=== PATIENT | female | born 1935 | race Caucasian/White ===

== ENCOUNTER 2020-11-17 23:00 | Emergency (ER) | payer MEDICARE | END 2020-11-18 00:07 | disposition home or self-care (01) | LOC: ERS 23:00 | DX: R09.89 Other specified symptoms and signs involving the circulatory and respiratory systems (principal); E11.9 Type 2 diabetes mellitus without complications; E03.9 Hypothyroidism, unspecified; E78.5 Hyperlipidemia, unspecified | CPT/HCPCS: 99283 ==

== ENCOUNTER 2022-08-27 10:20 | Inpatient (IN) | payer OTHER, MEDICARE ==
[2022-08-27] MEDS ORDERED: Fentanyl 100 MCG/2 ML VIAL ONE ×4 (11:02→18:03)
[2022-08-27] MEDS ORDERED: Boostrix 0.5 ML (Tdap) VIAL (>/=7 yrs of age) ONE ×2 (11:33→12:43)
[2022-08-27] MEDS ORDERED: Clindamycin/D5W 900 mg/50 ml Premix Bag ONE ×2 (11:33→12:43)
[2022-08-27 11:47] LABS: #Eosinphils 0.1 thou/uL (0.0-0.7); #Lymphocytes 1.1 thou/uL (1.20-3.40); #Monocytes 0.4 thou/uL (0.11-0.59); #Neutrophils 4.5 thou/uL (1.40-6.50); %Basophils 0.6 % (0.0-1.0); %Eosinophils 1.8 % (0.0-10.0); %Lymphocytes 17.5 % (21.0-51.0); %Monocytes 6.9 % (0.0-10.0); %Neutrophils 73.2 % (42.0-75.0); Hemoglobin 12.4 g/dL (12.0-16.0); Mean Corpuscular HGB CONC 33.1 g/dL (32.0-36.0); Mean Corpuscular Hemoglobin 32.8 pg (27.0-31.0); Platelet Count 216 10x3/uL (130-400); RBC Distribution Width 14.3 % (11.5-14.5); Red Blood Cell (RBC) Count 3.77 mill/uL (4.20-5.40); White Blood Cell (WBC) Count 6.1 10x3/uL (4.8-10.8)
[2022-08-27 12:04] LABS: PTT 27.5 sec (22.9-36.1); Prothrombin Time 13.6 sec (12.0-14.7)
[2022-08-27 12:09] LABS: ALT (SGPT) 19 U/L (8-55); AST (SGOT) 23 U/L (5-34); Albumin 4.1 g/dL (3.4-4.8); Alkaline Phosphatase 42 U/L (40-110); Anion Gap 11 mmol/L (10-20); BUN (Urea Nitrogen) 8 mg/dL (9.8-20.1); Bilirubin, Total 1.1 mg/dL (0.2-1.2); Calc. Creatinine Clearance 0 mL/min (70-130); Calcium 8.7 mg/dL (7.8-10.44); Carbon Dioxide 26 mmol/L (23-31); Chloride 109 mmol/L (98-107); Estimated GFR 89; Globulin 2.4 g/dL (2.4-3.5); Glucose 107 mg/dL (83-110); Potassium 3.3 mmol/L (3.5-5.1); Protein, Total 6.5 g/dL (5.8-8.1); Sodium 143 mmol/L (136-145)
[2022-08-27] MEDS ORDERED: Morphine 2 MG/ML VIAL SLOW IVP PRN (13:13)
[2022-08-27] MEDS ORDERED: Dextrose 5% in Water 1,000 ML IV PRN (13:13)
[2022-08-27] MEDS ORDERED: TETANUS, DIPHTHERIA TOX,ADULT (TDVAX) 0.5 ML VIAL IM ONE (13:13)
[2022-08-27] MEDS ORDERED: Ipratropium/Albuterol 3 ML NEB NEB PRN ×2 (13:13→13:15)
[2022-08-27] MEDS ORDERED: Dextrose 50% Abboject 50 ML SYRINGE SLOW IVP PRN (13:13)
[2022-08-27] MEDS ORDERED: Ondansetron PF 4 MG/2 ML Vial IVP PRN (13:13)
[2022-08-27] MEDS ORDERED: Midazolam HCl 2 mg/2 ml Vial ONE (13:15)
[2022-08-27] MEDS ORDERED: Bupivacaine 0.25% 10 ML VIAL ONE ×2 (13:15)
[2022-08-27] MEDS ORDERED: Acetaminophen 500 MG TAB PO SCH (13:30)
[2022-08-27] MEDS ORDERED: Naloxone HCl 2 mg/2 ml Syringe ONE (13:38)
[2022-08-27] MEDS ORDERED: fentaNYL PF 100 MCG/2 ML SYRINGE ONE (15:12)
[2022-08-27 15:31] LABS: Bacteria/HPF None Seen HPF (None Seen); Bilirubin Negative (Negative); Blood, Urine 1+ (Negative); Clarity Clear (Clear); Glucose, Urine (Dipstick) Normal (Negative); Ketone, Urine Negative (Negative); Leukocyte Negative Leu/uL (Negative); Nitrite Negative (Negative); Protein, Urine (Dipstick) Negative (Neg-Trace); RBC/HPF None Seen HPF (0-3); Specific Gravity, Urine 1.009 (1.002-1.036); Squamous Epithelial 0-3 HPF (0-3); Urobilinogen Normal mg/dL (Less than 2); WBC/HPF 0-3 HPF (0-3); pH, Urine 7.5 (5.0-9.0)
[2022-08-27] MEDS ORDERED: Sodium Chloride 0.9% 100 ML ONE (15:55)
[2022-08-27] MEDS ORDERED: CEFAZOLIN 2 GM VIAL ONE (15:55)
[2022-08-27] MEDS ORDERED: Succinylcholine Chloride 100 MG/5 ML SYRINGE FS ONE (16:00)
[2022-08-27] MEDS ORDERED: Ondansetron PF 4 MG/2 ML Vial ONE (16:00)
[2022-08-27] MEDS ORDERED: Dexamethasone 20 MG/5 ML VIAL ONE (16:00)
[2022-08-27] MEDS ORDERED: Lidocaine 1% PF 5 ML VIAL ONE (16:00)
[2022-08-27] MEDS ORDERED: PROPOFOL 200 MG/20 ML VIAL ONE (16:00)
[2022-08-27] MEDS ORDERED: PHENYLEPHRINE-NS 100 MCG/ML 10 ML SYRINGE ONE (16:00)
[2022-08-27 16:02] LABS: SARS-CoV-2 NAA Rapid Test DETECTED (NotDetected)
[2022-08-27] MEDS ORDERED: Bupivacaine 0.25% HCL 30 ML VIAL ONE (16:55)
[2022-08-27] MEDS ORDERED: Promethazine HCl 25 MG/ML VIAL IM PRN (17:13)
[2022-08-27] MEDS ORDERED: Ondansetron HCl/PF 4 MG/2 ML Vial IVP PRN (17:13)
[2022-08-27] MEDS ORDERED: Labetalol HCl 100 MG/20 ML VIAL ONE (17:34)
[2022-08-27] MEDS: Sodium Chloride 0.9% 1,000 ML IV SCH ×2 (19:35→20:54)
[2022-08-27] MEDS: CEFAZOLIN 2 GM in Sodium Chloride 0.9% 100 ML IVPB SCH ×3 (19:35→22:14)
[2022-08-27] MEDS: traMADol HCl 50 MG TAB PO SCH ×2 (19:35→22:06)
[2022-08-27] MEDS: Senokot S 8.6-50 MG TAB PO SCH (20:37)
[2022-08-27] MEDS: Famotidine/PF 20 mg/2ml Vial SLOW IVP SCH (20:38)
[2022-08-27] MEDS: Cyclobenzaprine 10 MG TAB PO PRN (20:38)
[2022-08-27] MEDS: traMADol HCl 50 MG TAB PO PRN (20:40)
[2022-08-27] MEDS: Acetaminophen 500 MG TAB PO SCH (20:54)
[2022-08-28] MEDS: Acetaminophen 500 MG TAB PO SCH ×4 (00:09→18:01)
[2022-08-28 03:27] VITALS: BMI 24.9
[2022-08-28] MEDS: traMADol HCl 50 MG TAB PO PRN ×3 (03:28→18:02)
[2022-08-28] MEDS: CEFAZOLIN 2 GM in Sodium Chloride 0.9% 100 ML IVPB SCH ×5 (06:07→20:52)
[2022-08-28] MEDS: traMADol HCl 50 MG TAB PO SCH ×2 (06:08→16:05)
[2022-08-28 07:00] LABS: #Lymphocytes 0.8 thou/uL (1.20-3.40); #Monocytes 0.7 thou/uL (0.11-0.59); #Neutrophils 4.9 thou/uL (1.40-6.50); %Basophils 0.2 % (0.0-1.0); %Eosinophils 0.1 % (0.0-10.0); %Monocytes 11.1 % (0.0-10.0); %Neutrophils 75.6 % (42.0-75.0); Mean Corpuscular HGB CONC 33.7 g/dL (32.0-36.0); Mean Corpuscular Hemoglobin 32.8 pg (27.0-31.0); Mean Corpuscular Volume 97.4 fl (78.0-98.0); Mean Platelet Volume 8.1 fL (7.4-10.4); Platelet Count 158 10x3/uL (130-400); Red Blood Cell (RBC) Count 3.05 mill/uL (4.20-5.40); White Blood Cell (WBC) Count 6.4 10x3/uL (4.8-10.8)
[2022-08-28] MEDS ORDERED: Alendronate Sodium 70 mg Tablet PO SCH (08:00)
[2022-08-28] MEDS: Famotidine/PF 20 mg/2ml Vial SLOW IVP SCH ×2 (08:51→20:52)
[2022-08-28] MEDS: Folic Acid 1 MG TAB PO SCH (08:52)
[2022-08-28] MEDS: Multivitamin W/ Minerals 1 TAB PO SCH (08:52)
[2022-08-28] MEDS: Polyethylene Glycol 3350 17 GM Packet PO SCH (08:52)
[2022-08-28] MEDS: Aspirin 81 mg Enteric Coated Tablet PO SCH (08:52)
[2022-08-28] MEDS: Senokot S 8.6-50 MG TAB PO SCH ×2 (08:52→20:53)
[2022-08-28] MEDS: Hydroxychloroquine Sulfate 200 MG TAB PO SCH (10:33)
[2022-08-28] MEDS: Gabapentin 300 MG CAP PO SCH ×3 (16:05→20:53)
[2022-08-28] MEDS ORDERED: Morphine 2 MG/ML VIAL SLOW IVP PRN (18:26)
[2022-08-28] MEDS: Cyclobenzaprine 10 MG TAB PO PRN (18:29)
[2022-08-28] MEDS ORDERED: Acetaminophen/Codeine 30-300mg Tablet PO SCH (18:30)
[2022-08-28] MEDS: Atorvastatin Calcium 10 MG TAB PO SCH (20:54)
[2022-08-29] MEDS: Acetaminophen/Codeine 30-300mg Tablet PO SCH ×2 (00:11→06:40)
[2022-08-29] MEDS: CEFAZOLIN 2 GM in Sodium Chloride 0.9% 100 ML IVPB SCH (06:39)
[2022-08-29] MEDS: Levothyroxine Sodium 88 MCG TAB PO SCH (06:40)
[2022-08-29] MEDS: Famotidine/PF 20 mg/2ml Vial SLOW IVP SCH ×2 (08:48→19:56)
[2022-08-29] MEDS: Acetaminophen 325 MG TAB PO SCH ×3 (08:49→19:55)
[2022-08-29] MEDS: Aspirin 81 mg Enteric Coated Tablet PO SCH (08:50)
[2022-08-29] MEDS: Senokot S 8.6-50 MG TAB PO SCH ×2 (08:50→19:55)
[2022-08-29] MEDS: Folic Acid 1 MG TAB PO SCH (08:50)
[2022-08-29] MEDS: Multivitamin W/ Minerals 1 TAB PO SCH (08:50)
[2022-08-29] MEDS: Hydroxychloroquine Sulfate 200 MG TAB PO SCH (09:13)
[2022-08-29] MEDS: Polyethylene Glycol 3350 17 GM Packet PO SCH (09:13)
[2022-08-29] MEDS: Gabapentin 300 MG CAP PO SCH (19:54)
[2022-08-29] MEDS: Atorvastatin Calcium 10 MG TAB PO SCH (19:54)
[2022-08-30] MEDS: Acetaminophen 325 MG TAB PO SCH ×3 (01:08→14:16)
[2022-08-30] MEDS: Levothyroxine Sodium 88 MCG TAB PO SCH (06:06)
[2022-08-30] MEDS ORDERED: Methotrexate Sodium 2.5 MG TAB PO SCH ×2 (09:00→21:00)
[2022-08-30] MEDS: Folic Acid 1 MG TAB PO SCH (09:35)
[2022-08-30] MEDS: Multivitamin W/ Minerals 1 TAB PO SCH (09:36)
[2022-08-30] MEDS: Aspirin 81 mg Enteric Coated Tablet PO SCH (09:36)
[2022-08-30] MEDS: Polyethylene Glycol 3350 17 GM Packet PO SCH (09:38)
[2022-08-30] MEDS: Senokot S 8.6-50 MG TAB PO SCH (09:38)
[2022-08-30] MEDS: Hydroxychloroquine Sulfate 200 MG TAB PO SCH (09:55)
[2022-08-30] MEDS ORDERED: Acetaminophen/Codeine 30-300mg Tablet PO PRN (10:03)
[2022-08-30] MEDS: Famotidine/PF 20 mg/2ml Vial SLOW IVP SCH (12:29)
[2022-08-30 15:28] VITALS: TEMP 98.2
[2022-08-30 15:29] VITALS: BP 120/81
[2022-08-30] MEDS: Gabapentin 300 MG CAP PO SCH (17:38)
[2022-08-30] MEDS ORDERED: Famotidine 20 MG TAB PO SCH (21:00)
[2022-08-31] MEDS ORDERED: FLU VACC QS2022-23(65YR UP)/PF 240 MCG/0.7 ML SYRINGE IM ONE (09:00)
== END 2022-08-30 19:30 | disposition swing bed (61) | DRG 510 ==
LOC: ERS 10:20 → SDC/OP 15:48 → SJJU 17:15
PROVIDERS: ADMIT Surgery; ATTEND Surgery
PROC: 0PSJ04Z Reposition Left Radius with Internal Fixation Device, Open Approach (ICD-10-PCS; principal; 2022-08-27)
DX: S52.572A Other intraarticular fracture of lower end of left radius, initial encounter for closed fracture (principal); U07.1 COVID-19; E11.40 Type 2 diabetes mellitus with diabetic neuropathy, unspecified; G89.29 Other chronic pain; M06.9 Rheumatoid arthritis, unspecified; M19.90 Unspecified osteoarthritis, unspecified site; E89.0 Postprocedural hypothyroidism; W01.0XXA Fall on same level from slipping, tripping and stumbling without subsequent striking against object, initial encounter; Z79.899 Other long term (current) drug therapy; Z79.890 Hormone replacement therapy; Z79.84 Long term (current) use of oral hypoglycemic drugs; Z88.8 Allergy status to other drugs, medicaments and biological substances; Z91.09 Other allergy status, other than to drugs and biological substances; Z90.49 Acquired absence of other specified parts of digestive tract; Z98.51 Tubal ligation status; Z87.442 Personal history of urinary calculi; Z98.890 Other specified postprocedural states
CPT/HCPCS: 36415; 36416; 70450; 71045; 72125; 80053; 81003; 81015; 84484; 85025; 85610; 85730; 86850; 86900; 86901; 90471; 90715; 93005; 96365; 99156; C1713; G0390; J1100; J2250; J2310; J2405; J2704; J3010; J3490; J7050; J8610; S0020; S0028; U0002

== ENCOUNTER 2022-08-31 20:34 | Inpatient (IN) | payer MEDICARE ==
[2022-09-01] MEDS ORDERED: Senokot S 8.6-50 MG TAB PO PRN (01:30)
[2022-09-01] MEDS ORDERED: Ondansetron ODT 4 MG TAB PO PRN (01:30)
[2022-09-01] MEDS: Acetaminophen/Codeine 30-300mg Tablet PO PRN (02:04)
[2022-09-01 03:21] VITALS: BMI 27.4
[2022-09-01 04:50] LABS: #Eosinphils 0.1 thou/uL (0.0-0.7); #Lymphocytes 1.4 thou/uL (1.20-3.40); #Monocytes 0.3 thou/uL (0.11-0.59); #Neutrophils 5.6 thou/uL (1.40-6.50); %Basophils 0.3 % (0.0-1.0); %Eosinophils 1.9 % (0.0-10.0); %Lymphocytes 18.6 % (21.0-51.0); %Monocytes 4.6 % (0.0-10.0); %Neutrophils 74.7 % (42.0-75.0); Hemoglobin 10.9 g/dL (12.0-16.0); Mean Corpuscular HGB CONC 33.5 g/dL (32.0-36.0); Mean Corpuscular Hemoglobin 32.6 pg (27.0-31.0); Mean Corpuscular Volume 97.3 fl (78.0-98.0); Mean Platelet Volume 8.2 fL (7.4-10.4); Platelet Count 241 10x3/uL (130-400); RBC Distribution Width 14.6 % (11.5-14.5); Red Blood Cell (RBC) Count 3.33 mill/uL (4.20-5.40); White Blood Cell (WBC) Count 7.5 10x3/uL (4.8-10.8)
[2022-09-01 05:18] LABS: Anion Gap 14 mmol/L (10-20); BUN (Urea Nitrogen) 11 mg/dL (9.8-20.1); Calc. Creatinine Clearance 86 mL/min (70-130); Calcium 8.8 mg/dL (7.8-10.44); Carbon Dioxide 21 mmol/L (23-31); Chloride 110 mmol/L (98-107); Estimated GFR 90; Glucose 137 mg/dL (83-110); Potassium 3.2 mmol/L (3.5-5.1); Sodium 142 mmol/L (136-145)
[2022-09-01 05:25] LABS: Troponin I Less than 0.010 ng/mL (< 0.028)
[2022-09-01] MEDS: Levothyroxine Sodium 88 MCG TAB PO SCH (05:43)
[2022-09-01] MEDS: Famotidine 20 MG TAB PO SCH ×2 (09:17→20:45)
[2022-09-01] MEDS: Aspirin 81 mg Enteric Coated Tablet PO SCH (09:17)
[2022-09-01] MEDS: CO Q-10 CAPSULE 100 MG PO SCH (09:17)
[2022-09-01] MEDS: Cholecalciferol 1,000 UNITS (25 MCG) TAB PO SCH (09:17)
[2022-09-01] MEDS: Folic Acid 1 MG TAB PO SCH (09:18)
[2022-09-01] MEDS ORDERED: Bisacodyl 10 MG SUPP PR PRN (09:33)
[2022-09-01] MEDS: Hydroxychloroquine Sulfate 200 MG TAB PO SCH (10:18)
[2022-09-01] MEDS: Multivitamin w/Zinc Stress 1 TAB PO SCH (10:19)
[2022-09-01] MEDS: Vitamin E 400 UNITS CAP PO SCH (10:19)
[2022-09-01 10:55] LABS: Troponin I Less than 0.010 ng/mL (< 0.028)
[2022-09-01] MEDS ORDERED: Potassium Chloride 20 MEQ TAB PO SCH (13:30)
[2022-09-01] MEDS: Atorvastatin Calcium 10 MG TAB PO SCH (17:55)
[2022-09-01] MEDS: Gabapentin 300 MG CAP PO SCH (17:55)
[2022-09-01] MEDS: Acetaminophen 325 MG TAB PO PRN (18:16)
[2022-09-01] MEDS ORDERED: Gabapentin 300 MG CAP PO SCH (21:00)
[2022-09-01] MEDS ORDERED: metFORMIN XR 500 MG TAB PO SCH (21:00)
[2022-09-02] MEDS: Acetaminophen 325 MG TAB PO PRN
[2022-09-02 04:04] LABS: #Eosinphils 0.2 thou/uL (0.0-0.7); #Lymphocytes 1.2 thou/uL (1.20-3.40); #Monocytes 0.6 thou/uL (0.11-0.59); #Neutrophils 5.8 thou/uL (1.40-6.50); %Basophils 0.5 % (0.0-1.0); %Eosinophils 2.4 % (0.0-10.0); %Lymphocytes 15.3 % (21.0-51.0); %Monocytes 7.6 % (0.0-10.0); %Neutrophils 74.3 % (42.0-75.0); Hemoglobin 10.8 g/dL (12.0-16.0); Mean Corpuscular HGB CONC 33.6 g/dL (32.0-36.0); Mean Corpuscular Hemoglobin 32.6 pg (27.0-31.0); Mean Corpuscular Volume 96.9 fl (78.0-98.0); Mean Platelet Volume 7.9 fL (7.4-10.4); Platelet Count 262 10x3/uL (130-400); RBC Distribution Width 14.4 % (11.5-14.5); Red Blood Cell (RBC) Count 3.31 mill/uL (4.20-5.40); White Blood Cell (WBC) Count 7.9 10x3/uL (4.8-10.8)
[2022-09-02 04:28] LABS: Anion Gap 13 mmol/L (10-20); BUN (Urea Nitrogen) 12 mg/dL (9.8-20.1); Calc. Creatinine Clearance 86 mL/min (70-130); Calcium 8.4 mg/dL (7.8-10.44); Carbon Dioxide 22 mmol/L (23-31); Chloride 108 mmol/L (98-107); Estimated GFR 90; Glucose 139 mg/dL (83-110); Magnesium 1.7 mg/dL (1.6-2.6); Potassium 3.8 mmol/L (3.5-5.1); Sodium 139 mmol/L (136-145)
[2022-09-02] MEDS: Levothyroxine Sodium 88 MCG TAB PO SCH (05:36)
[2022-09-02] MEDS: Aspirin 81 mg Enteric Coated Tablet PO SCH (10:45)
[2022-09-02] MEDS: Folic Acid 1 MG TAB PO SCH (10:45)
[2022-09-02] MEDS: CO Q-10 CAPSULE 100 MG PO SCH (10:45)
[2022-09-02] MEDS: Cholecalciferol 1,000 UNITS (25 MCG) TAB PO SCH (10:46)
[2022-09-02] MEDS: Famotidine 20 MG TAB PO SCH (10:46)
[2022-09-02] MEDS: Multivitamin w/Zinc Stress 1 TAB PO SCH (10:51)
[2022-09-02] MEDS: Vitamin E 400 UNITS CAP PO SCH (10:51)
[2022-09-02] MEDS: Hydroxychloroquine Sulfate 200 MG TAB PO SCH (10:51)
[2022-09-02] MEDS: Acetaminophen/Codeine 30-300mg Tablet PO PRN (12:17)
[2022-09-02 13:14] VITALS: TEMP 97.8
[2022-09-02] MEDS: Gabapentin 300 MG CAP PO SCH (17:52)
[2022-09-02 17:53] VITALS: BP 109/54
[2022-09-02] MEDS: Atorvastatin Calcium 10 MG TAB PO SCH (17:53)
[2022-09-06] MEDS ORDERED: Methotrexate Sodium 2.5 MG TAB PO SCH (09:00)
== END 2022-09-02 19:05 | DRG 310 ==
LOC: 2NO 09-01 01:03 → OBSVTOIN 09-02 09:34
PROVIDERS: ADMIT Student in an Organized Health Care Education/Training Program; ATTEND Family Medicine
DX: I48.92 Unspecified atrial flutter (principal); E03.9 Hypothyroidism, unspecified; M06.9 Rheumatoid arthritis, unspecified; Z79.84 Long term (current) use of oral hypoglycemic drugs; Z79.899 Other long term (current) drug therapy; S52.92XD Unspecified fracture of left forearm, subsequent encounter for closed fracture with routine healing; Z88.8 Allergy status to other drugs, medicaments and biological substances
CPT/HCPCS: 36415; 80048; 83735; 84484; 85025; 93306; 96372; G0378; J1650

== ENCOUNTER 2022-11-03 14:37 | Observation (INO) | payer MEDICARE ==
[2022-11-03 16:53] VITALS: BMI 23.7
[2022-11-03] MEDS ORDERED: Acetaminophen 325 MG TAB PO PRN ×2 (18:05→18:11)
[2022-11-03] MEDS ORDERED: Ondansetron ODT 4 MG TAB PO PRN (18:05)
[2022-11-03] MEDS ORDERED: Calcium Carbonate 500 MG ChewTAB PO PRN (18:05)
[2022-11-03] MEDS ORDERED: Senokot S 8.6-50 MG TAB PO PRN (18:05)
[2022-11-03] MEDS ORDERED: Bisacodyl 5 MG TAB PO PRN (18:11)
[2022-11-03] MEDS ORDERED: Alendronate Sodium 70 mg Tablet PO SCH (18:15)
[2022-11-03 18:46] LABS: #Eosinphils 0.1 thou/uL (0.0-0.7); #Monocytes 0.6 thou/uL (0.11-0.59); #Neutrophils 2.9 thou/uL (1.40-6.50); %Basophils 0.6 % (0.0-1.0); %Eosinophils 2.3 % (0.0-10.0); %Lymphocytes 30.9 % (21.0-51.0); %Monocytes 12.1 % (0.0-10.0); %Neutrophils 53.9 % (42.0-75.0); Hemoglobin 12.4 g/dL (12.0-16.0); Mean Corpuscular HGB CONC 31.1 g/dL (32.0-36.0); Mean Corpuscular Hemoglobin 30.5 pg (27.0-31.0); Platelet Count 242 10x3/uL (130-400); RBC Distribution Width 14.6 % (11.5-14.5); Red Blood Cell (RBC) Count 4.07 mill/uL (4.20-5.40); White Blood Cell (WBC) Count 5.3 10x3/uL (4.8-10.8)
[2022-11-03 18:58] LABS: Anion Gap 12 mmol/L (10-20); BUN (Urea Nitrogen) 7 mg/dL (9.8-20.1); Calc. Creatinine Clearance 77 mL/min (70-130); Calcium 8.7 mg/dL (7.8-10.44); Carbon Dioxide 23 mmol/L (23-31); Chloride 111 mmol/L (98-107); Estimated GFR 89; Glucose 94 mg/dL (83-110); Potassium 3.4 mmol/L (3.5-5.1); Sodium 143 mmol/L (136-145)
[2022-11-03] MEDS ORDERED: Electrolyte Replacement Protocol 1 EACH FS SCH (19:52)
[2022-11-03] MEDS ORDERED: Gabapentin 300 MG CAP PO SCH ×4 (21:00→23:30)
[2022-11-03] MEDS ORDERED: Atorvastatin Calcium 40 MG TAB PO SCH (21:00)
[2022-11-03] MEDS ORDERED: metFORMIN XR 500 MG TAB PO SCH (21:00)
[2022-11-03] MEDS: Famotidine 20 MG TAB PO SCH (22:05)
[2022-11-03] MEDS ORDERED: Acetaminophen 500 MG TAB PO PRN (22:19)
[2022-11-04 04:57] LABS: #Eosinphils 0.1 thou/uL (0.0-0.7); #Monocytes 0.6 thou/uL (0.11-0.59); #Neutrophils 2.5 thou/uL (1.40-6.50); %Basophils 0.6 % (0.0-1.0); %Eosinophils 2.9 % (0.0-10.0); %Lymphocytes 31.7 % (21.0-51.0); %Monocytes 11.6 % (0.0-10.0); %Neutrophils 52.8 % (42.0-75.0); Hemoglobin 12.2 g/dL (12.0-16.0); Mean Corpuscular HGB CONC 31.4 g/dL (32.0-36.0); Mean Corpuscular Volume 98.7 fl (78.0-98.0); Mean Platelet Volume 9.9 fL (7.4-10.4); Platelet Count 238 10x3/uL (130-400); RBC Distribution Width 14.7 % (11.5-14.5); Red Blood Cell (RBC) Count 3.94 mill/uL (4.20-5.40); White Blood Cell (WBC) Count 4.8 10x3/uL (4.8-10.8)
[2022-11-04 05:20] LABS: Anion Gap 9 mmol/L (10-20); BUN (Urea Nitrogen) 11 mg/dL (9.8-20.1); Calc. Creatinine Clearance 73 mL/min (70-130); Calcium 8.6 mg/dL (7.8-10.44); Carbon Dioxide 24 mmol/L (23-31); Cardiac Risk 2.6 (Less than 4.5); Chloride 111 mmol/L (98-107); Cholesterol 138 mg/dl (< 200 Desired); Estimated GFR 88; Glucose 103 mg/dL (83-110); HDL Cholesterol 54 mg/dL (>60 Neg Risk); LDL Cholesterol, Calculated 60 mg/dL; Potassium 3.4 mmol/L (3.5-5.1); Sodium 141 mmol/L (136-145); Triglycerides 122 mg/dL (Less than 150)
[2022-11-04] MEDS ORDERED: Levothyroxine Sodium 88 MCG TAB PO SCH (06:00)
[2022-11-04] MEDS ORDERED: Potassium Chloride 20 MEQ TAB PO SCH (08:00)
[2022-11-04] MEDS: Famotidine 20 MG TAB PO SCH (08:57)
[2022-11-04] MEDS ORDERED: Hydroxychloroquine Sulfate 200 MG TAB PO SCH (09:00)
[2022-11-04] MEDS ORDERED: Multivitamin w/Zinc Stress 1 TAB PO SCH (09:00)
[2022-11-04] MEDS ORDERED: Aspirin 81 mg Enteric Coated Tablet PO SCH ×2 (09:00)
[2022-11-04] MEDS ORDERED: Vitamin E 400 UNITS CAP PO SCH (09:00)
[2022-11-04] MEDS ORDERED: Folic Acid 1 MG TAB PO SCH (09:00)
[2022-11-04] MEDS ORDERED: CO Q-10 CAPSULE 100 MG PO SCH (09:00)
[2022-11-04] MEDS ORDERED: Cholecalciferol 1,000 UNITS (25 MCG) TAB PO SCH (09:00)
[2022-11-04] MEDS ORDERED: Clopidogrel Bisulfate 75 MG TAB PO SCH (13:45)
[2022-11-04 16:38] VITALS: BP 136/79; TEMP 98.2
[2022-11-04] MEDS ORDERED: Gabapentin 300 MG CAP PO SCH (17:00)
[2022-11-04] MEDS ORDERED: Atorvastatin Calcium 10 MG TAB PO SCH ×3 (17:00)
[2022-11-08] MEDS ORDERED: Methotrexate Sodium 2.5 MG TAB PO SCH (09:00)
== END 2022-11-04 16:50 | disposition home or self-care (01) ==
LOC: NEURO 16:35
PROVIDERS: ADMIT Internal Medicine; ATTEND Internal Medicine
DX: R42 Dizziness and giddiness (principal); R26.81 Unsteadiness on feet; I48.92 Unspecified atrial flutter; M06.9 Rheumatoid arthritis, unspecified; I10 Essential (primary) hypertension; E11.9 Type 2 diabetes mellitus without complications; E78.5 Hyperlipidemia, unspecified; E03.9 Hypothyroidism, unspecified; I65.23 Occlusion and stenosis of bilateral carotid arteries; Z79.02 Long term (current) use of antithrombotics/antiplatelets; Z79.82 Long term (current) use of aspirin; Z79.83 Long term (current) use of bisphosphonates; Z79.84 Long term (current) use of oral hypoglycemic drugs; Z79.890 Hormone replacement therapy; Z79.899 Other long term (current) drug therapy; Z88.1 Allergy status to other antibiotic agents; Z88.8 Allergy status to other drugs, medicaments and biological substances; Z91.048 Other nonmedicinal substance allergy status
CPT/HCPCS: 36415; 70551; 80048; 80061; 85025; 93880; G0378

== ENCOUNTER 2023-12-09 14:19 | Outpatient (CLI) | payer MEDICARE ==
[2023-12-09 15:16] VITALS: BMI 24.0
[2023-12-09 16:39] LABS: Bilirubin Neg (Negative); Blood, Urine 25 (Negative); Glucose, Urine (Dipstick) Normal (Negative); Ketone, Urine Negative (Negative); Leukocyte 500 (Negative); Nitrite Positive (Negative); Protein, Urine (Dipstick) 15 mg/dl (Neg-Trace); Urobilinogen Normal mg/dL (Less than 2)
[2023-12-09 16:40] LABS: Clarity Hazy (Clear)
[2023-12-09 16:42] LABS: PTT 26.9 sec (22.0-33.0); Prothrombin Time 11.3 sec (9.5-12.1)
[2023-12-09 16:46] LABS: Hematocrit 38.7 % (34.9-44.5); Hemoglobin 12.7 g/dL (12.0-15.5); Mean Corpuscular HGB CONC 32.8 g/dL (32.0-36.0); Mean Corpuscular Volume 91.5 fL (81.6-98.3); Mean Platelet Volume 10.2 fL (7.4-10.4); Platelet Count 283 10x3/uL (150-450); RBC Distribution Width 15.7 % (11.5-14.5); Red Blood Cell (RBC) Count 4.23 10x6/uL (3.90-5.03); White Blood Cell (WBC) Count 7.4 10x3/uL (3.5-10.5)
[2023-12-09 17:07] LABS: Anion Gap 13 mmol/L (10-20); BUN (Urea Nitrogen) 10 mg/dL (9.8-20.1); Calc. Creatinine Clearance 59 mL/min (70-130); Calcium 9.3 mg/dL (7.8-10.44); Carbon Dioxide 24 mmol/L (23-31); Chloride 105 mmol/L (98-107); Estimated GFR 84; Glucose 89 mg/dL (83-110); Potassium 4.3 mmol/L (3.5-5.1); Sodium 138 mmol/L (136-145)
[2023-12-09 17:21] LABS: Bacteria/HPF Rare-Few HPF (None Seen); Squamous Epithelial 0-3 HPF (0-3); WBC/HPF Greater Than 50 HPF (0-3)
== END 2023-12-09 14:20 | disposition home or self-care (01) ==
LOC: LABBT 14:19
PROVIDERS: ATTEND Urology
DX: Z01.812 Encounter for preprocedural laboratory examination (principal); N20.0 Calculus of kidney; I48.91 Unspecified atrial fibrillation; E11.9 Type 2 diabetes mellitus without complications
CPT/HCPCS: 80048; 81001; 85027; 85610; 85730; 87077; 87086; 87186

== ENCOUNTER 2023-12-12 00:33 | Observation (INO) | payer MEDICARE ==
[2023-12-12 01:04] VITALS: BMI 24.3
[2023-12-12] MEDS ORDERED: Acetaminophen 325 MG TAB PO PRN (01:54)
[2023-12-12] MEDS ORDERED: Ondansetron PF 4 MG/2 ML Vial IVP PRN (01:54)
[2023-12-12] MEDS ORDERED: Ondansetron ODT 4 MG TAB PO PRN (01:54)
[2023-12-12] MEDS ORDERED: Acetaminophen 650 MG Suppository PR PRN (01:54)
[2023-12-12 08:08] LABS: #Basophils 0.03 10x3/uL (0.0-0.2); %Basophils 0.4 % (0.0-1.0); %Eosinophils 2.1 % (0.0-10.0); %Lymphocytes 20.4 % (21.0-51.0); %Monocytes 8.1 % (0.0-10.0); %Neutrophils 68.9 % (42.0-75.0); ALT (SGPT) 16 U/L (8-55); AST (SGOT) 28 U/L (5-34); Albumin 3.3 g/dL (3.4-4.8); Alkaline Phosphatase 47 U/L (40-110); Anion Gap 16 mmol/L (10-20); BUN (Urea Nitrogen) 9 mg/dL (9.8-20.1); Bilirubin, Total 0.8 mg/dL (0.2-1.2); Calc. Creatinine Clearance 65 mL/min (70-130); Calcium 8.4 mg/dL (7.8-10.44); Carbon Dioxide 18 mmol/L (23-31); Chloride 110 mmol/L (98-107); Estimated GFR 86; Globulin 3.1 g/dL (2.4-3.5); Glucose 138 mg/dL (83-110); Hematocrit 38.8 % (36.0-47.0); Hemoglobin 12.4 g/dL (12.0-16.0); Magnesium 1.8 mg/dL (1.6-2.6); Mean Corpuscular Hemoglobin 29.5 pg (27.0-31.0); Mean Corpuscular Volume 92.4 fL (78.0-98.0); Platelet Count 231 10x3/uL (130-400); Protein, Total 6.4 g/dL (5.8-8.1); Sodium 140 mmol/L (136-145)
[2023-12-12] MEDS: Levothyroxine Sodium 88 MCG TAB PO SCH (10:10)
[2023-12-12] MEDS: Famotidine/PF 20 mg/2ml Vial SLOW IVP SCH (10:17)
[2023-12-12] MEDS: Gabapentin 300 MG CAP PO SCH ×2 (10:17→20:12)
[2023-12-12] MEDS: LevoFLOXacin 750 mg/D5W 750 MG in Premix 1 BAG IVPB SCH (10:18)
[2023-12-12] MEDS: Folic Acid 1 MG TAB PO SCH (10:18)
[2023-12-12] MEDS: Famotidine 20 MG TAB PO SCH (10:18)
[2023-12-12] MEDS: Hydroxychloroquine Sulfate 200 MG TAB PO SCH (10:18)
[2023-12-12] MEDS: Aspirin 81 mg Enteric Coated Tablet PO SCH (10:18)
[2023-12-12] MEDS: Atorvastatin Calcium 40 MG TAB PO SCH (20:11)
[2023-12-13] MEDS: LevoFLOXacin 500 MG TAB PO SCH (06:25)
[2023-12-13 11:44] VITALS: BP 111/55; TEMP 98.5
== END 2023-12-13 15:34 | disposition home or self-care (01) ==
LOC: 2NO 00:33
PROVIDERS: ADMIT Student in an Organized Health Care Education/Training Program; ATTEND Internal Medicine
DX: R42 Dizziness and giddiness (principal); M06.9 Rheumatoid arthritis, unspecified; I10 Essential (primary) hypertension; E11.9 Type 2 diabetes mellitus without complications; E78.5 Hyperlipidemia, unspecified; I48.92 Unspecified atrial flutter; I48.91 Unspecified atrial fibrillation; E87.8 Other disorders of electrolyte and fluid balance, not elsewhere classified; N30.01 Acute cystitis with hematuria; B96.5 Pseudomonas (aeruginosa) (mallei) (pseudomallei) as the cause of diseases classified elsewhere; Z79.82 Long term (current) use of aspirin; Z79.899 Other long term (current) drug therapy; Z79.890 Hormone replacement therapy; Z79.84 Long term (current) use of oral hypoglycemic drugs; Z88.8 Allergy status to other drugs, medicaments and biological substances; Z91.09 Other allergy status, other than to drugs and biological substances
CPT/HCPCS: 70551; 80053; 83735; 85025; 93005; 96374; 97116; G0378 ×2; J1956; 93010

== ENCOUNTER 2023-12-23 07:44 | Observation (INO) | payer MEDICARE ==
[2023-12-23] MEDS ORDERED: LevoFLOXacin D5W 500 mg (100 mL) BAG ONE (09:25)
[2023-12-23] MEDS ORDERED: Lidocaine 1% PF 5 ML VIAL ONE (09:55)
[2023-12-23] MEDS ORDERED: fentaNYL 50 mcg/mL 1 mL Vial ONE ×3 (09:55→12:40)
[2023-12-23] MEDS ORDERED: Rocuronium Bromide 10 MG/ML (10ML VIAL) ONE (09:55)
[2023-12-23] MEDS ORDERED: PROPOFOL 20 ML ONE (09:55)
[2023-12-23] MEDS ORDERED: Ondansetron PF 4 MG/2 ML Vial ONE ×3 (09:55→15:00)
[2023-12-23] MEDS ORDERED: Dexamethasone 4 mg/ml Vial ONE (09:55)
[2023-12-23] MEDS ORDERED: Phenylephrine 10 MG/ML VIAL ONE (10:09)
[2023-12-23] MEDS ORDERED: SUGAMMADEX SODIUM 200 MG/2 ML VIAL ONE (10:31)
[2023-12-23] MEDS ORDERED: Labetalol HCl 100 MG/20 ML VIAL ONE (12:48)
[2023-12-23] MEDS ORDERED: HYDROmorphone 0.5 MG/0.5 ML SYRINGE ONE (12:57)
[2023-12-23] MEDS ORDERED: Phenazopyridine HCl 100 MG TAB ONE (13:30)
[2023-12-23] MEDS ORDERED: Oxybutynin 5 MG TAB ONE (13:30)
[2023-12-23] MEDS ORDERED: Promethazine HCl 25 MG/ML VIAL ONE ×2 (14:09→15:00)
[2023-12-23] MEDS ORDERED: HYDROcodone/Acetaminophen 5/325 mg Tablet PO PRN ×2 (14:43)
[2023-12-23] MEDS ORDERED: Morphine 4 MG/ML VIAL SLOW IVP PRN (14:43)
[2023-12-23] MEDS ORDERED: Glucagon 1 MG/ML KIT IM PRN (14:43)
[2023-12-23] MEDS ORDERED: Dextrose 5% in Water 1,000 ML IV PRN (14:43)
[2023-12-23] MEDS ORDERED: hydrALAZINE 20 MG/ML VIAL SLOW IVP PRN (14:43)
[2023-12-23] MEDS ORDERED: Ondansetron PF 4 MG/2 ML Vial IVP PRN (14:43)
[2023-12-23] MEDS ORDERED: Hyoscyamine SL 0.125 MG TAB SL PRN (14:43)
[2023-12-23] MEDS ORDERED: Dextrose 50% Abboject 50 ML SYRINGE SLOW IVP PRN (14:43)
[2023-12-23] MEDS ORDERED: diphenhydrAMINE 25 MG CAP PO PRN (14:43)
[2023-12-23] MEDS ORDERED: Acetaminophen 500 MG TAB PO PRN (14:46)
[2023-12-23] MEDS ORDERED: Insulin Lispro 100 UNIT/ML 10 ML VIAL SC PRN (14:55)
[2023-12-23] MEDS ORDERED: Ketorolac Tromethamine 30 MG (1 mL) VIAL ONE (15:00)
[2023-12-23] MEDS ORDERED: Famotidine/PF 20 mg/2ml Vial ONE (15:00)
[2023-12-23 16:17] VITALS: BMI 24.0
[2023-12-23] MEDS: Atorvastatin Calcium 40 MG TAB PO SCH (20:45)
[2023-12-23] MEDS: Gabapentin 300 MG CAP PO SCH (20:45)
[2023-12-23] MEDS: Docusate 100 MG CAP PO SCH (20:46)
[2023-12-23] MEDS: metFORMIN XR 500 MG ER.TAB PO SCH (20:46)
[2023-12-23] MEDS: Trospium 20 MG TAB PO SCH (20:46)
[2023-12-23] MEDS: Sodium Chloride 0.9% 1,000 ML IV SCH (20:46)
[2023-12-23] MEDS: Morphine 2 MG/ML VIAL SLOW IVP PRN (20:47)
[2023-12-23] MEDS: Promethazine HCl 25 MG/ML VIAL IM PRN (20:47)
[2023-12-24] MEDS: Levothyroxine Sodium 88 MCG TAB PO SCH (06:17)
[2023-12-24 07:54] LABS: Anion Gap 17 mmol/L (10-20); BUN (Urea Nitrogen) 13 mg/dL (9.8-20.1); Calc. Creatinine Clearance 42 mL/min (70-130); Calcium 7.9 mg/dL (7.8-10.44); Carbon Dioxide 20 mmol/L (23-31); Chloride 109 mmol/L (98-107); Estimated GFR 58; Glucose 112 mg/dL (83-110); Potassium 3.8 mmol/L (3.5-5.1); Sodium 142 mmol/L (136-145)
[2023-12-24] MEDS: LevoFLOXacin 500 mg/D5W 500 MG in Premix 1 BAG IVPB SCH (08:54)
[2023-12-24] MEDS: Hydroxychloroquine Sulfate 200 MG TAB PO SCH (08:54)
[2023-12-24 10:27] LABS: Anisocytosis SLIGHT = 6-15 cells HPF (0-5); Band 17 % (5-11); Burr Cells MODERATE= 6-15 cells HPF (0-1); Hematocrit 37.3 % (36.0-47.0); Hemoglobin 11.5 g/dL (12.0-16.0); Lymphocytes 2 % (21-51); Macrocytosis SLIGHT = 6-15 cells HPF (0-5); Mean Corpuscular HGB CONC 30.8 g/dL (32.0-36.0); Mean Corpuscular Hemoglobin 29.2 pg (27.0-31.0); Mean Corpuscular Volume 94.7 fL (78.0-98.0); Mean Platelet Volume 9.8 fL (7.4-10.4); Monocytes 1 % (0-10); Neutrophil 80 % (42-75); Platelet Adequacy Comment Platelets Normal; Platelet Count 248 10x3/uL (130-400); Poikilocytosis SLIGHT = 6-15 cells HPF (0-5); Polychromasia SLIGHT = 2-3 cells HPF (0-2); RBC Distribution Width 16.4 % (11.5-14.5); RBC Morphology 2; Red Blood Cell (RBC) Count 3.94 mill/uL (4.20-5.40)
[2023-12-24 12:11] VITALS: BP 86/53; TEMP 98
== END 2023-12-24 13:20 | disposition home or self-care (01) ==
LOC: SDC 07:44 → SURG B 14:43
PROVIDERS: ADMIT Urology; ATTEND Urology
PROC: 0TF78ZZ Fragmentation in Left Ureter, Via Natural or Artificial Opening Endoscopic (ICD-10-PCS; principal; 2023-12-23)
PROC: 0T778DZ Dilation of Left Ureter with Intraluminal Device, Via Natural or Artificial Opening Endoscopic (ICD-10-PCS; 2023-12-23)
DX: N20.0 Calculus of kidney (principal); I10 Essential (primary) hypertension; E11.9 Type 2 diabetes mellitus without complications; I48.91 Unspecified atrial fibrillation; E78.5 Hyperlipidemia, unspecified; Z88.8 Allergy status to other drugs, medicaments and biological substances; Z88.1 Allergy status to other antibiotic agents; Z79.899 Other long term (current) drug therapy
CPT/HCPCS: 52356; 74420; 80048; 82365; 85025; C1713; C1769; C2617; J1170; J1885; J1956 ×2; J2272; J2371; J2405; J2550; J2704; J3010; J7050; S0028; 36415; 88300; J1100

== ENCOUNTER 2024-03-28 11:34 | Outpatient (CLI) | payer MEDICARE | END 2024-03-28 11:35 | disposition home or self-care (01) | LOC: ULT 11:34 | PROVIDERS: ATTEND Urology | DX: N20.0 Calculus of kidney (principal) | CPT/HCPCS: 76770 ==

== ENCOUNTER 2024-05-10 12:12 | Observation (INO) | payer MEDICARE, OTHER ==
[2024-05-10 14:12] VITALS: BMI 23.1
[2024-05-10] MEDS ORDERED: Ondansetron PF 4 MG/2 ML Vial IVP PRN (14:13)
[2024-05-10] MEDS ORDERED: Dextrose 5% in Water 1,000 ML IV PRN (14:13)
[2024-05-10] MEDS ORDERED: Glucagon 1 MG/ML KIT IM PRN (14:13)
[2024-05-10] MEDS ORDERED: Insulin Lispro 100 UNIT/ML 10 ML VIAL SC PRN ×2 (14:13)
[2024-05-10] MEDS ORDERED: Senokot S 8.6-50 MG TAB PO PRN (14:13)
[2024-05-10] MEDS ORDERED: Ondansetron ODT 4 MG TAB PO PRN (14:13)
[2024-05-10] MEDS ORDERED: Dextrose 50% Abboject 50 ML SYRINGE SLOW IVP PRN (14:13)
[2024-05-10] MEDS ORDERED: Acetaminophen 650 MG Suppository PR PRN (14:13)
[2024-05-10] MEDS ORDERED: Bisacodyl 5 MG TAB PO PRN (16:18)
[2024-05-10] MEDS ORDERED: Atorvastatin Calcium 40 MG TAB PO SCH (21:00)
[2024-05-10] MEDS: Acetaminophen 325 MG TAB PO PRN (21:01)
[2024-05-10] MEDS: Gabapentin 300 MG CAP PO SCH (21:02)
[2024-05-10] MEDS: Sulfameth/Trimethoprim DS 800-160mg TAB PO SCH (21:02)
[2024-05-11 05:35] LABS: #Basophils Less than 0.03 10x3/uL (0.0-0.2); %Basophils 0.3 % (0.0-1.0); %Eosinophils 5.9 % (0.0-10.0); %Lymphocytes 23.6 % (21.0-51.0); %Monocytes 17.2 % (0.0-10.0); %Neutrophils 52.3 % (42.0-75.0); Hematocrit 34.8 % (36.0-47.0); Hemoglobin 11.2 g/dL (12.0-16.0); Mean Corpuscular HGB CONC 32.2 g/dL (32.0-36.0); Mean Corpuscular Hemoglobin 30.3 pg (27.0-31.0); Mean Corpuscular Volume 94.1 fL (78.0-98.0); Mean Platelet Volume 9.5 fL (7.4-10.4); Platelet Count 287 10x3/uL (130-400); RBC Distribution Width 15.4 % (11.5-14.5)
[2024-05-11 05:54] LABS: Anion Gap 13 mmol/L (10-20); BUN (Urea Nitrogen) 11 mg/dL (9.8-20.1); Calc. Creatinine Clearance 55 mL/min (70-130); Calcium 8.4 mg/dL (7.8-10.44); Carbon Dioxide 22 mmol/L (23-31); Chloride 107 mmol/L (98-107); Estimated GFR 84; Glucose 103 mg/dL (83-110); Potassium 3.8 mmol/L (3.5-5.1); Sodium 138 mmol/L (136-145)
[2024-05-11] MEDS: Levothyroxine Sodium 88 MCG TAB PO SCH (06:27)
[2024-05-11] MEDS: Atorvastatin Calcium 10 MG TAB PO SCH (09:45)
[2024-05-11] MEDS: Cholecalciferol 1,000 UNITS (25 MCG) TAB PO SCH (09:46)
[2024-05-11] MEDS: Folic Acid 1 MG TAB PO SCH (09:46)
[2024-05-11] MEDS: Trospium 20 MG TAB PO SCH (09:46)
[2024-05-11] MEDS: Hydroxychloroquine Sulfate 200 MG TAB PO SCH (09:48)
[2024-05-11 12:48] VITALS: BP 117/71; TEMP 98.3
== END 2024-05-11 14:53 | disposition home or self-care (01) ==
LOC: INTOOBSV 12:12 → 2SE 12:12
PROVIDERS: ADMIT Internal Medicine; ATTEND Internal Medicine
DX: S06.5XAA Traumatic subdural hemorrhage with loss of consciousness status unknown, initial encounter (principal); I10 Essential (primary) hypertension; E78.5 Hyperlipidemia, unspecified; I48.91 Unspecified atrial fibrillation; I48.92 Unspecified atrial flutter; E11.42 Type 2 diabetes mellitus with diabetic polyneuropathy; E03.9 Hypothyroidism, unspecified; Z86.718 Personal history of other venous thrombosis and embolism; M06.9 Rheumatoid arthritis, unspecified; Z90.49 Acquired absence of other specified parts of digestive tract; Z90.710 Acquired absence of both cervix and uterus; Z98.890 Other specified postprocedural states; Z79.899 Other long term (current) drug therapy; Z88.8 Allergy status to other drugs, medicaments and biological substances; Z88.1 Allergy status to other antibiotic agents; Z91.09 Other allergy status, other than to drugs and biological substances; W01.10XA Fall on same level from slipping, tripping and stumbling with subsequent striking against unspecified object, initial encounter
CPT/HCPCS: 36415; 36416; 70450; 80048; 85025; G0378

== ENCOUNTER 2024-07-24 10:02 | Outpatient (CLI) | payer MEDICARE | END 2024-07-24 10:03 | disposition home or self-care (01) | LOC: BICMRI 10:02 | PROVIDERS: ATTEND Family Medicine | DX: M47.22 Other spondylosis with radiculopathy, cervical region (principal); M43.12 Spondylolisthesis, cervical region; M43.13 Spondylolisthesis, cervicothoracic region; M50.11 Cervical disc disorder with radiculopathy, high cervical region; M50.121 Cervical disc disorder at C4-C5 level with radiculopathy; M50.122 Cervical disc disorder at C5-C6 level with radiculopathy; M50.123 Cervical disc disorder at C6-C7 level with radiculopathy; M47.813 Spondylosis without myelopathy or radiculopathy, cervicothoracic region; M50.33 Other cervical disc degeneration, cervicothoracic region; M48.02 Spinal stenosis, cervical region; M48.03 Spinal stenosis, cervicothoracic region; M25.78 Osteophyte, vertebrae; R60.0 Localized edema | CPT/HCPCS: 72141 ==